=== PATIENT | male | born 1940 | race Caucasian/White ===

== ENCOUNTER 2017-02-16 06:09 | Inpatient (IN) | payer OTHER, MEDICARE ==
[~2017-02-16] VITALS: Ht 160 cm; Wt 78.7 kg
[~2017-02-16 06:09] MED LIST: FINA5TAB4 PO; FISH OIL PO; GARL1TAB PO; SIMV20TA3 PO; VITAMIN C PO; VITAMIN D PO
[2017-02-16] MEDS ORDERED: LACTATED RINGERS 1,000 ML IV SCH (06:50)
[2017-02-16] MEDS ORDERED: LIDOCAINE 1%, 2ML SQ PRN (07:00)
[2017-02-16] MEDS ORDERED: MIDAZOLAM 1 MG/ML, 2ML ONE (07:17)
[2017-02-16] MEDS ORDERED: FENTANYL PF 250 MCG/5ML ONE (07:17)
[2017-02-16] MEDS ORDERED: THROMBIN 5,000 UNIT VIAL TP ONE (07:19)
[2017-02-16] MEDS ORDERED: BUPIVACAINE/PF-EPI 0.5% 1:200K ONE (07:19)
[2017-02-16] MEDS ORDERED: HYDROmorphone 1 MG/ML, 1ML IV PRN (07:30)
[2017-02-16] MEDS ORDERED: ALBUTEROL SULFATE 2.5 MG/3 ML NPPB PRN (07:30)
[2017-02-16] MEDS ORDERED: ACETAMINOPHEN 325 MG TABLET PO PRN (07:30)
[2017-02-16] MEDS ORDERED: hydrALAzine 20 MG/ML, 1ML IV PRN (07:30)
[2017-02-16] MEDS ORDERED: HEPARIN 1,000 UNITS/ML, 10ML IV ONE (07:30)
[2017-02-16] MEDS ORDERED: LABETALOL 5MG/ML, 20ML IV PRN (07:30)
[2017-02-16] MEDS ORDERED: BUPIVACAINE/PF-EPI 0.5% 1:200K INFIL ONE (07:30)
[2017-02-16] MEDS ORDERED: MEPERIDINE/PF 25MG/0.5ML IVPush PRN (07:30)
[2017-02-16] MEDS ORDERED: ONDANSETRON 2MG/ML, 2ML IVPush PRN (07:30)
[2017-02-16] MEDS ORDERED: MIDAZOLAM 1 MG/ML, 2ML IV PRN (07:30)
[2017-02-16] MEDS ORDERED: OXYcodone 5 MG/5 ML ORAL.SOL UDC PO PRN (07:30)
[2017-02-16] MEDS ORDERED: PROMETHAZINE 25 MG/ML, 1ML IV PRN (07:30)
[2017-02-16] MEDS ORDERED: ONDANSETRON 2MG/ML, 2ML ONE (07:31)
[2017-02-16] MEDS ORDERED: DEXAMETHASONE 4 MG/ML, 1ML ONE (07:31)
[2017-02-16] MEDS ORDERED: SUCCINYLCHOLINE 20 MG/ML, 10ML ONE (07:31)
[2017-02-16] MEDS ORDERED: EPHEDRINE 50 MG/ML, 1ML ONE (07:31)
[2017-02-16] MEDS ORDERED: ROCURONIUM 10 MG/ML ONE (07:31)
[2017-02-16] MEDS ORDERED: CEFAZOLIN 1,000 MG ONE (07:31)
[2017-02-16] MEDS ORDERED: PROPOFOL 10 MG/ML, 20ML ONE (07:31)
[2017-02-16] MEDS ORDERED: HEPARIN 1,000 UNITS/ML, 10ML ONE (07:56)
[2017-02-16] MEDS ORDERED: VISIPAQUE 270 MG/ML, 50ML BOTTLE ONE (08:00)
[2017-02-16] MEDS ORDERED: VISIPAQUE 270 MG/ML, 150ML BOTTLE ONE (08:00)
[2017-02-16] MEDS ORDERED: OXYcodone 5 MG/5 ML ORAL.SOL UDC ONE (10:02)
[2017-02-16] MEDS ORDERED: ACETAMINOPHEN 325 MG/10.15 ML UDC ONE (10:02)
[2017-02-16] MEDS ORDERED: ACETAMINOPHEN 650 MG/20.3 ML UDC ONE (10:02)
[2017-02-16] MEDS ORDERED: FENTANYL PF 100 MCG/2ML ONE (10:02)
[2017-02-16] MEDS: FENTANYL PF 100 MCG/2ML IV PRN ×3 (10:07→10:18)
[2017-02-16] MEDS ORDERED: ONDANSETRON 2MG/ML, 2ML IV PRN (11:30)
[2017-02-16] MEDS: POTASSIUM CHLORIDE 20 MEQ in D5%-0.45% NACL 1,000 ML IV SCH (12:58)
[2017-02-16] MEDS: FINASTERIDE 5 MG TABLET PO SCH (12:58)
[2017-02-16 14:03] VITALS: BP 95/51
[2017-02-16] MEDS: CEFAZOLIN PMX 1GM/50ML 50 ML IVPB SCH (16:42)
[2017-02-16 20:53] VITALS: BP 97/49
[2017-02-16] MEDS ORDERED: SIMVASTATIN 20 MG TABLET PO SCH (21:00)
[2017-02-16 23:47] VITALS: BP 106/52
[2017-02-17] MEDS: morphine SULFATE 10 MG/ML, 1ML IV PRN ×2 (00:16→08:41)
[2017-02-17] MEDS: CEFAZOLIN PMX 1GM/50ML 50 ML IVPB SCH (01:39)
[2017-02-17 01:56] VITALS: BP 98/56
[2017-02-17] MEDS: POTASSIUM CHLORIDE 20 MEQ in D5%-0.45% NACL 1,000 ML IV SCH (02:30)
[2017-02-17 03:28] VITALS: BP 103/53
[2017-02-17 06:15] LABS: BLOOD UREA NITROGEN 10 mg/dL (7-18)
[2017-02-17 07:57] VITALS: BP 104/55
[2017-02-17] MEDS: FINASTERIDE 5 MG TABLET PO SCH (08:38)
[2017-02-17] MEDS ORDERED: HYDR-3240 PO (09:19)
== END 2017-02-17 09:38 | disposition home or self-care (01) | DRG 269 ==
LOC: ORIP 06:09 → EDSTATUS 07:30 → 4NOR 10:54 → DCLOUNGE 02-17 09:24
PROVIDERS: ADMIT Surgery Vascular Surgery; ATTEND Surgery Vascular Surgery
PROC: B4101ZZ Fluoroscopy of Abdominal Aorta using Low Osmolar Contrast (ICD-10-PCS; 2017-02-16)
PROC: 04V03D6 (ICD-10-PCS; principal; 2017-02-16 07:30)
DX: I71.4 Abdominal aortic aneurysm, without rupture (principal); N40.0 Benign prostatic hyperplasia without lower urinary tract symptoms; E78.5 Hyperlipidemia, unspecified; Z90.49 Acquired absence of other specified parts of digestive tract
CPT/HCPCS: 34802; 34812; 34825; 36200; 36415; 75952; 75953; 80048; 85025; 86850; 86900; C1725; J0690; J1100; J1644; J2250; J2405; J2704; J3010; J3480; Q9966; C1751; C1768; C1769; C1894; J0330; J2270; J7120